=== PATIENT | male | born 1980 | race Caucasian/White ===

== ENCOUNTER → 2017-10-25 16:23 | Outpatient (REF) | payer MEDICAID, SELFPAY ==
[2017-10-25 21:24] LABS: HCT 39.7 % (40.0-50.0); HGB 13.6 g/dL (13.5-17.5); Mean Corp. HGB Concentration 34.3 g/dL (32.0-36.0); Mean Corpuscular Volume 87.6 fL (80-95); Mean Platelet Volume 10.6 fL (8.0-11.0); Platelet Count 305 x1000/uL (130-400); RBC 4.53 m/cumm (4.50-6.00); RBC Distribution Width 13.6 % (11.8-14.1); White Blood Cell Count 9.54 k/cumm (4.4-10.8)
[2017-10-25 21:50] LABS: TSH (W/Ref FT4) 0.35 uIU/mL (0.358-3.74)
[2017-10-25 22:08] LABS: FREE T4 1.13 ng/dL (0.76-1.46)
[2017-10-26 10:38] LABS: Vitamin B12 385 pg/mL (193-986)
[2017-10-27 08:50] LABS: Folate 16.1 ng/ml
== END ==
LOC: NCHCN 16:23
PROVIDERS: PCP Nurse Practitioner Family; Visit Provider Nurse Practitioner Family
DX: R53.83 Other fatigue (principal); G25.81 Restless legs syndrome
CPT/HCPCS: 85027; 82607; 82746; 84439; 84443

== ENCOUNTER 2017-12-24 12:53 | Outpatient (REF) | payer MEDICAID, SELFPAY ==
[2017-12-24 22:06] LABS: Cholesterol 130 mg/dL (50-200); Glucose 84 mg/dL (70-100); HDL Cholesterol 52 mg/dL (40-60); LDL CHOLESTEROL 73 mg/dL (<100); TSH (W/Ref FT4) 0.72 uIU/mL (0.358-3.74); Triglyceride 44 mg/dL (30-150)
== END 2017-12-24 13:13 ==
LOC: NCHCN 12:53
PROVIDERS: PCP Nurse Practitioner Family; Visit Provider Nurse Practitioner Family
DX: Z13.220 Encounter for screening for lipoid disorders (principal); Z13.1 Encounter for screening for diabetes mellitus; R94.6 Abnormal results of thyroid function studies
CPT/HCPCS: 80061; 82947; 83721; 84443

== ENCOUNTER 2020-06-17 14:38 | Outpatient (REF) | payer MEDICAID, SELFPAY ==
[2020-06-17 21:09] LABS: HCT 41.2 % (40.0-50.0); HGB 13.9 g/dL (13.5-17.5); MCH 31.4 pg (27.0-33.0); MCHC 33.7 % (32.0-36.0); MPV 10.8 fL (8.0-11.0); Platelet Count 234 10^3/uL (130-400); RBC 4.43 10^6/uL (4.36-5.78); RDW 13.1 % (11.8-14.1); RDW-SD 44.7 fL
[2020-06-17 21:46] LABS: ALT 23 U/L (16-63); AST 19 U/L (15-37); Albumin 4.5 g/dL (3.4-5.0); Alkaline Phosphatase 54 U/L (46-116); Anion Gap 11.5 mmol/L (3-11); BUN 25 mg/dL (7-18); Bilirubin, Total 0.5 mg/dL (0.2-1.0); CO2 24.5 mmol/L (21.0-32.0); Calcium 9.2 mg/dL (8.5-10.1); Calculated LDL 62 mg/dL (<100); Chloride 104 mmol/L (98-107); Cholesterol 144 mg/dL (<200); Glucose 85 mg/dL (74-106); HDL Cholesterol 70 mg/dL (40-60); Potassium 4.3 mmol/L (3.5-5.1); Sodium 140 mmol/L (136-145); Total Protein 7.8 g/dL (6.4-8.2); Triglyceride 63 mg/dL (<150); Vitamin B12 1724 pg/mL (193-986)
[2020-06-19 10:22] LABS: Syphilis Serology (RPR) Negative (Negative)
[2020-06-19 10:54] LABS: HBs Antibody, Quant <3.1 mIU/mL (See Note); Hepatitis B Surface Ab Negative (See Note)
[2020-06-19 11:34] LABS: Hepatitis C Ab w Rflx HCV PCR Negative (Negative)
[2020-06-19 11:48] LABS: HIV-1/2 Ag & Ab Screen Negative (Negative)
[2020-06-19 13:34] LABS: Chlamydia Result Negative (Negative); GC Result Negative (Negative)
[2020-06-26 09:55] LABS: Source Throat
[2020-06-26 09:56] LABS: Chlamydia amplified RNA Negative (Negative); N gonorrhoeae amplified RNA Negative (Negative)
== END 2020-06-17 14:39 | disposition home or self-care (01) ==
LOC: NCHCN 14:38
PROVIDERS: PCP Nurse Practitioner Family; Visit Provider Nurse Practitioner Family
DX: E53.8 Deficiency of other specified B group vitamins (principal); Z11.59 Encounter for screening for other viral diseases; Z11.3 Encounter for screening for infections with a predominantly sexual mode of transmission; Z11.4 Encounter for screening for human immunodeficiency virus [HIV]; Z13.220 Encounter for screening for lipoid disorders; Z13.228 Encounter for screening for other metabolic disorders
CPT/HCPCS: 80053; 80061; 85027; 86706; 86803; 87389; 87491; 87591; 82607; 86592